=== PATIENT | male | born 1955 | race Caucasian/White ===

== ENCOUNTER 2022-09-30 14:32 | Emergency (ER) | payer OTHER ==
[2022-09-30] VITALS (24 sets, daily range): BP systolic 100–168; BP diastolic 57–104
[~2022-09-30] VITALS: Ht 190.5 cm; Wt 152.8 kg
[2022-09-30] MEDS ORDERED: AMLODIPINE BESYL5 MG PO (14:56)
[2022-09-30] MEDS ORDERED: TRIAMT/HCTZ1 TA1 PO (14:57)
[2022-09-30] MEDS ORDERED: ATORVASTATIN CA10 MG PO (14:57)
[2022-09-30] MEDS ORDERED: LISINOPRIL10 MG PO (14:58)
[2022-09-30] MEDS ORDERED: STRIVERDI2.5 MCG/AC (14:58)
[2022-09-30] MEDS ORDERED: TAMSULOSIN0.4 MG PO (14:58)
[2022-09-30 15:16] LABS: BASO% 0.2 % (0-3); EOS% 0.4 % (0-8); HEMATOCRIT 52.5 % (39.0-50.0); HEMOGLOBIN 16.1 g/dl (14.0-18.0); IMMATURE GRANULOCYTES 0.5 % (0.0-5.0); LYMPH% 19.4 % (15-41); MEAN CELL VOLUME 96.5 fL CALC (80.0-100.0); MEAN CORPUSCULAR HGB 29.6 pG CALC (26.0-32.0); MEAN CORPUSCULAR HGB CONC 30.7 g/dL CAL (32.0-36.0); MONO% 11.9 % (2-13); NEUT# 7.38 thou/uL (1.82-7.42); NEUT% 67.6 % (42-76); RED BLOOD COUNT 5.44 mill/uL (4.70-6.10)
[2022-09-30 15:32] LABS: ALBUMIN 4.2 g/dL (3.2-5.0); ALKALINE PHOSPHATASE 80 u/l (38-126); BILIRUBIN, TOTAL 0.4 mg/dL (0.2-1.3); CARBON DIOXIDE 35 mmol/l (22-30); CHLORIDE 95 mmol/l (95-108); CREATININE 1.4 mg/dL (0.7-1.3); GFR FOR AFR.AMER. > 60 ML/MIN (>=60 (CALC)); GFR OTHER RACES 50 ML/MIN (>=60 (CALC)); SGOT/AST 56 u/l (19-48); SODIUM 134 mmol/l (137-146); TOTAL PROTEIN 7.2 g/dL (6.3-8.2)
[2022-09-30 15:36] LABS: INTERNATIONAL NORMALIZED RATIO 1.2 RATIO (0.7-1.3); PROTHROMBIN TIME 11.4 SECONDS (9.0-12.5)
[2022-09-30 15:39] LABS: ANION GAP 9 (6-22 (CALC)); BUN 55 mg/dL (8-23); BUN/CREATININE RATIO 39 (12-20 (CALC))
== END 2022-09-30 21:30 | disposition short-term general hospital (02) | DRG 64 ==
LOC: ED 14:32
PROVIDERS: Family Medicine
PROC: 5A09357 Assistance with Respiratory Ventilation, Less than 24 Consecutive Hours, Continuous Positive Airway Pressure (ICD-10-PCS; principal; 2022-09-30)
PROC: 0BH17EZ Insertion of Endotracheal Airway into Trachea, Via Natural or Artificial Opening (ICD-10-PCS; 2022-09-30)
PROC: 5A1935Z Respiratory Ventilation, Less than 24 Consecutive Hours (ICD-10-PCS; 2022-09-30)
PROC: 02HV33Z Insertion of Infusion Device into Superior Vena Cava, Percutaneous Approach (ICD-10-PCS; 2022-09-30)
PROC: 0T9B70Z Drainage of Bladder with Drainage Device, Via Natural or Artificial Opening (ICD-10-PCS; 2022-09-30)
DX: I63.9 Cerebral infarction, unspecified (principal); J96.20 Acute and chronic respiratory failure, unspecified whether with hypoxia or hypercapnia; J44.1 Chronic obstructive pulmonary disease with (acute) exacerbation; R47.81 Slurred speech; R27.0 Ataxia, unspecified; R29.702 NIHSS score 2; I11.0 Hypertensive heart disease with heart failure; I50.9 Heart failure, unspecified; E66.01 Morbid (severe) obesity due to excess calories; F17.200 Nicotine dependence, unspecified, uncomplicated
CPT/HCPCS: J1650; J2060; Q9967